=== PATIENT | male | born 1975 | race Hispanic/Latino ===

== ENCOUNTER → 2023-12-16 | Emergency (ER) | payer BC ==
[~2023-12-16] MED LIST: HYDROCODONE/APAP 5/325 MG TAB ONE; KETOROLAC 30 MG/ML INJ ONE; MORPHINE 2 MG/ML SYR ONE; MORPHINE 4 MG/ML SYR ONE; dexAMETHasone 10 MG/ML VIAL ONE
--- NOTE | 2023-12-16 04:42 | ER ---
Nurse's Notes [facility] Name: Milton Duarte Age: 48 yrs Sex: Male : 1975 Arrival Date: 12/16/2023 Time: 04:00 Bed 6 Private MD: Diagnosis: Pain in left elbow Presentation: 12/16 04:14 Chief complaint: Patient states: left elbow pain X1 day. pain 9/10. denies injury. lg3 Coronavirus screen: Client denies travel out of the [place] in the last 14 days. At this time, the client does not indicate any symptoms associated with coronavirus-19. Ebola Screen: No symptoms or risks identified at this time. Initial Sepsis Screen: Does the patient meet any 2 criteria? No. Patient's initial sepsis screen is negative. Does the patient have a suspected source of infection? No. Patient's initial sepsis screen is negative. Risk Assessment: Do you want to hurt yourself or someone else? Patient reports no desire to harm self or others. Onset of symptoms was December 15, 2023. 04:14 Method Of Arrival: Ambulatory lg3 04:14 Acuity: DINO 4 lg3 Triage Assessment: 04:17 General: Appears in no apparent distress. comfortable, Behavior is calm, cooperative. lg3 Pain: Complains of pain in left elbow Pain does not radiate. Pain currently is 9 out of 10 on a pain scale. Noted to be resistant to movement. EENT: No deficits noted. No signs and/or symptoms were reported regarding the EENT system. Neuro: No deficits noted. Alonso Agitation-Sedation Scale (RASS): 0 - Alert and Calm Level of Consciousness is awake, alert, obeys commands, Oriented to person, place, time, situation. Cardiovascular: No deficits noted. Denies chest pain, shortness of breath, Capillary refill < 3 seconds Clubbing of nail beds is absent JVD is absent Patient's skin is warm and dry. Respiratory: No deficits noted. Airway is patent Respiratory effort is even, unlabored, Respiratory pattern is regular, symmetrical, Breath sounds are clear bilaterally. GI: No deficits noted. No signs and/or symptoms were reported involving the gastrointestinal system. Abdomen is round non-distended, obese. : No deficits noted. No signs and/or symptoms were reported regarding the genitourinary system. Derm: No deficits noted. No signs and/or symptoms reported regarding the dermatologic system. Skin is intact, is healthy with good turgor, Skin is dry, Skin is normal, Skin temperature is warm. Musculoskeletal: Circulation, motion, and sensation intact. Range of motion: intact in all extremities, Reports pain in left elbow. Historical: - Allergies: 04:17 No Known Allergies; lg3 - Home Meds: 04:17 Lisinopril Oral [Active]; diclofenac potassium oral [Active]; Indomethacin Oral lg3 [Active]; - PMHx: 04:17 Gout; HTN; lg3 - PSHx: 04:17 right knee; left ankle; Appendectomy; lg3 - Immunization history:: Adult Immunizations up to date, Client reports receiving the 2nd dose of the Covid vaccine, Flu vaccine is up to date. - Social history:: Smoking status: Patient denies any tobacco usage or history of. Patient uses alcohol, weekly. Screenin:23 [facility] ED Fall Risk Assessment (Adult) History of falling in the last 3 months, tm6 including since admission No falls in past 3 months (0 pts) Confusion or Disorientation No (0 pts) Intoxicated or Sedated No (0 pts) Impaired Gait No (0 pts) Mobility Assist Device Used No (0 pt) Altered Elimination No (0 pt) Score/Fall Risk Level 0 - 2 = Low Risk Oriented to surroundings. Abuse screen: Denies threats or abuse. Denies injuries from another. Nutritional screening: No deficits noted. Tuberculosis screening: No symptoms or risk factors identified. Assessment: 04:23 General: Appears in no apparent distress. Behavior is calm, cooperative. Pain: tm6 Complains of pain in left elbow Pain currently is 9 out of 10 on a pain scale. Quality of pain is described as aching, Pain began 1 day ago. Neuro: Level of Consciousness is awake, alert, obeys commands, Oriented to person, place, time, situation. Cardiovascular: Capillary refill < 3 seconds Patient's skin is warm and dry. Respiratory: Airway is patent Respiratory effort is even, unlabored, Respiratory pattern is regular, symmetrical. GI: Abdomen is round obese. : No signs and/or symptoms were reported regarding the genitourinary system. EENT: No signs and/or symptoms were reported regarding the EENT system. Derm: No signs and/or symptoms reported regarding the dermatologic system. Musculoskeletal: Reports pain in left elbow since yesterday. 04:40 Reassessment: Patient appears in no apparent distress at this time. No changes from tm6 previously documented assessment. Patient and/or family updated on plan of care and expected duration. Pain level reassessed. Vital Signs: 04:14 BP 175 / 84; Pulse 78; Resp 18 S; Temp 98.3(O); Pulse Ox 100% on R/A; Weight 176.9 kg lg3 (R); Height 5 ft. 9 in. (R); Pain 9/10; 04:38 BP 137 / 75; Pulse 77; Pulse Ox 99% on R/A; tm6 04:54 BP 151 / 89; Pulse 75; Resp 19; Temp 98.3(TE); Pulse Ox 99% on R/A; Pain 9/10; tm6 04:14 Body Mass Index 57.59 (176.90 kg, 175.26 cm) lg3 04:14 Pain Scale: Adult lg3 04:54 Pain Scale: Adult tm6 [place] Coma Score: 05:00 Eye Response: spontaneous(4). Motor Response: obeys commands(6). Verbal Response: rv oriented(5). Total: 15. ED Course: 04:05 Patient arrived in ED. gm2 04:08 Jose rCuz Aceves PA is PHCP. cp 04:08 Jose Cruz Brunson MD is Attending Physician. cp 04:14 Efrem Taylor, BONY is Primary Nurse. tm6 04:17 Triage completed. lg3 04:17 Arm band placed on right wrist. lg3 04:23 Patient has correct armband on for positive identification. Bed in low position. Call tm6 light in reach. Side rails up X 1. Provided Education on: plan of care. Client placed on continuous cardiac and pulse oximetry monitoring. NIBP monitoring applied. Door closed. Noise minimized. 04:31 XRAY Elbow LEFT 3 view In Process Unspecified. EDMS 04:38 Shoulder immobilizer applied on left shoulder. tm6 04:55 No provider procedures requiring assistance completed. Patient did not have IV access tm6 during this emergency room visit. Administered Medications: 04:22 Drug: Ketorolac IM 30 mg IM once Route: IM; Site: left deltoid; tm6 05:35 Follow up: Response: No adverse reaction; Marked relief of symptoms rv 04:22 Drug: HYDROcodone-acetaminophen PO 5 mg-325 mg 1 tabs PO once Route: PO; tm6 05:34 Follow up: Response: No adverse reaction; Marked relief of symptoms rv 04:23 Drug: Dexamethasone IM 10 mg IM once Route: IM; Site: right deltoid; tm6 05:35 Follow up: Response: No adverse reaction; Marked relief of symptoms rv 05:18 Drug: morphine IM 6 mg IM once Route: IM; Site: right deltoid; as9 05:34 Follow up: Response: Medication administered at discharge. rv Medication: 04:23 VIS not applicable for this client. tm6 Outcome: 04:42 Discharge ordered by MD. cp 04:56 Discharged to home ambulatory, tm6 04:56 Condition: stable 04:56 Discharge instructions given to patient, Instructed on discharge instructions, follow up and referral plans. medication usage, Demonstrated understanding of instructions, follow-up care, medications, Prescriptions given X 3, 05:35 Patient left the ED. rv Signatures: Dispatcher [employer] EDMS Jose Cruz Aceves PA PA cp Vicente, Ronaldo, RN RN rv Samreen Torres RN RN lg3 Susanne Swan gm2 Efrem Taylor RN RN tm6 Jefry Price RN RN as9 Corrections: (The following items were deleted from the chart) 04:26 04:23 No provider procedures requiring assistance completed. tm6 tm6
--- NOTE | 2023-12-16 04:42 | EDPHYS ---
Physician Documentation [facility] Name: Milton Duarte Age: 48 yrs Sex: Male : 1975 Arrival Date: 12/16/2023 Time: 04:00 Bed 6 Private MD: ED Physician Jose Cruz Brunson HPI: 12/16 04:10 This 48 yrs old Male presents to ER via Unassigned with complaints of Left cp Elbow Pain. 04:10 The patient or guardian complains of decreased range of motion, pain, that is acute, cp tenderness. The complaints affect the left elbow. Context: resulted from unknown cause. Onset: The symptoms/episode began/occurred yesterday. Treatment prior to arrival includes: no previous treatment. 04:10 Associated signs and symptoms: Pertinent negatives: fever, numbness, warmth, injury. cp 04:10 Severity of symptoms: in the emergency department the symptoms are unchanged, despite cp home interventions. Historical: - Allergies: 04:17 No Known Allergies; lg3 - Home Meds: 04:17 Lisinopril Oral [Active]; diclofenac potassium oral [Active]; Indomethacin Oral lg3 [Active]; - PMHx: 04:17 Gout; HTN; lg3 - PSHx: 04:17 right knee; left ankle; Appendectomy; lg3 - Immunization history:: Adult Immunizations up to date, Client reports receiving the 2nd dose of the Covid vaccine, Flu vaccine is up to date. - Social history:: Smoking status: Patient denies any tobacco usage or history of. Patient uses alcohol, weekly. ROS: 04:15 MS/extremity: Positive for decreased range of motion, pain, of the left elbow, Negative cp for injury or acute deformity, 04:15 Eyes: Negative for injury, pain, redness, and discharge, cp 04:15 Constitutional: Negative for body aches, chills, fever, poor PO intake, 04:15 ENT: Negative for drainage from ear(s), ear pain, sore throat, difficulty swallowing, difficulty handling secretions, 04:15 Neck: Negative for pain with movement, pain at rest, stiffness, tenderness, bony tenderness, 04:15 Cardiovascular: Negative for chest pain, edema, palpitations, 04:15 Respiratory: Negative for cough, shortness of breath, wheezing, 04:15 Abdomen/GI: Negative for abdominal pain, nausea, vomiting, and diarrhea, 04:15 Back: Negative for pain at rest, pain with movement, 04:15 Skin: Negative for cellulitis, rash, 04:15 Neuro: Negative for altered mental status, dizziness, headache, weakness, 04:15 All other systems are negative, Exam: 04:20 Constitutional: The patient appears in no acute distress, alert, awake, cp non-diaphoretic, non-toxic, well developed, well nourished, obese, uncomfortable, 04:20 Head/Face: Normocephalic, atraumatic. cp 04:20 Eyes: Periorbital structures: appear normal, Conjunctiva: normal, no exudate, no injection, Sclera: no appreciated abnormality, Lids and lashes: appear normal, bilaterally, 04:20 ENT: External ear(s): are unremarkable, Nose: is normal, Mouth: Lips: moist, Oral mucosa: pink and intact, moist, Posterior pharynx: Airway: no evidence of obstruction, patent, 04:20 Neck: ROM/movement: is normal, is supple, without pain, no range of motions limitations, 04:20 Chest/axilla: Inspection: normal, 04:20 Cardiovascular: Rate: normal, Rhythm: regular, Pulses: Pulses are 2+ in left radial artery. 04:20 Respiratory: the patient does not display signs of respiratory distress, Respirations: normal, no use of accessory muscles, no retractions, labored breathing, is not present, Breath sounds: are clear throughout, no decreased breath sounds, no stridor, no wheezing, 04:20 Abdomen/GI: Exam negative for discomfort, distension, guarding, 04:20 Back: pain, is absent, ROM is normal, 04:20 Musculoskeletal/extremity: Extremities: grossly normal except: noted in the left elbow: decreased ROM, pain, swelling, tenderness, ROM: limited passive range of motion, limited passive range of motion due to pain, in the left elbow, the left hand and left arm Sensation intact. 04:20 Neuro: Orientation: to person, place \T\ time. Mentation: is normal, Vital Signs: 04:14 BP 175 / 84; Pulse 78; Resp 18 S; Temp 98.3(O); Pulse Ox 100% on R/A; Weight 176.9 kg lg3 (R); Height 5 ft. 9 in. (R); Pain 9/10; 04:38 BP 137 / 75; Pulse 77; Pulse Ox 99% on R/A; tm6 04:54 BP 151 / 89; Pulse 75; Resp 19; Temp 98.3(TE); Pulse Ox 99% on R/A; Pain 9/10; tm6 04:14 Body Mass Index 57.59 (176.90 kg, 175.26 cm) lg3 04:14 Pain Scale: Adult lg3 04:54 Pain Scale: Adult tm6 Derek Coma Score: 05:00 Eye Response: spontaneous(4). Motor Response: obeys commands(6). Verbal Response: rv oriented(5). Total: 15. MDM: 04:10 Patient medically screened. cp 04:40 Independent interpretation of the following test(s) in the Emergency Department X-Ray: cp My interpretation is images of left elbow negative for fracture. Counseling: I had a detailed discussion with the patient and/or guardian regarding the historical points, exam findings, and any diagnostic results supporting the discharge/admit diagnosis, radiology results, to return to the emergency department if symptoms worsen or persist or if there are any questions or concerns that arise at home. 04:42 Data reviewed: vital signs, nurses notes, radiologic studies, plain films. cp 04:42 Differential diagnosis: tendonitis, gout, septic joint. I considered the following cp discharge prescriptions or medication management in the emergency department Medications were administered in the Emergency Department. See DEC. 12/16 04:14 Order name: XRAY Elbow LEFT 3 view cp 12/16 04:14 Order name: Sling; Complete Time: 04:38 cp Administered Medications: 04:22 Drug: Ketorolac IM 30 mg IM once Route: IM; Site: left deltoid; tm6 05:35 Follow up: Response: No adverse reaction; Marked relief of symptoms rv 04:22 Drug: HYDROcodone-acetaminophen PO 5 mg-325 mg 1 tabs PO once Route: PO; tm6 05:34 Follow up: Response: No adverse reaction; Marked relief of symptoms rv 04:23 Drug: Dexamethasone IM 10 mg IM once Route: IM; Site: right deltoid; tm6 05:35 Follow up: Response: No adverse reaction; Marked relief of symptoms rv 05:18 Drug: morphine IM 6 mg IM once Route: IM; Site: right deltoid; as9 05:34 Follow up: Response: Medication administered at discharge. rv Disposition Summary: 12/16/23 04:42 Discharge Ordered Notes: Location: Home cp Problem: new cp Symptoms: have improved cp Condition: Stable cp Diagnosis - Pain in left elbow cp Followup: cp - With: Private Physician - When: 2 - 3 days - Reason: Recheck today's complaints Discharge Instructions: - Discharge Summary Sheet cp - Joint Pain cp Forms: - Medication Reconciliation Form cp - Thank You Letter cp - Antibiotic Education cp - Prescription Opioid Use cp - Patient Portal Instructions cp - Leadership Thank You Letter cp - Work release form rv Prescriptions: - Diclofenac Sodium 75 mg Oral Tablet Sustained Release - take 1 tablet ORAL route 2 times per day; 30 tablet; Refills: 0, Product cp Selection Permitted - Medrol (Blayne) 4 mg Oral Tablets, Dose Pack - take 1 tablet ORAL route as directed - follow package instructions; 1 packet; cp Refills: 0, Product Selection Permitted - methocarbamol 750 mg Oral tablet - take 1 tablet ORAL route 3 times per day; 30 tablet; Refills: 0, Product cp Selection Permitted Signatures: Dispatcher [employer] Jose Cruz Ibarra PA PA cp Able, Lacie RN RN lg3 Efrem Taylor RN RN tm6 Jefry Price RN RN as9 Alexi Arreguin RN rv
[2023-12-16 05:54] VITALS: BP 151/89; TEMP 98.3; O2SAT 99
--- NOTE | 2023-12-16 12:39 | RAD REPORT ---
EXAM DESCRIPTION: XR Left Elbow Complete, 3 or More Views CLINICAL HISTORY: The patient is 48 years old and is Male; PAIN TECHNIQUE: Frontal, lateral and oblique views of the left elbow. COMPARISON: No relevant prior studies available. FINDINGS: Bones/joints: Unremarkable. No acute fracture. No dislocation. Soft tissues: Unremarkable. IMPRESSION: No acute fracture or dislocation. Electronically signed by: Monty Mariee MD 12/16/2023 04:51 AM CARPET INSPECTOR Due to temporary technical issues with the PACS/Fluency reporting system, reports are being signed by the in house radiologist without review as a courtesy to ensure prompt reporting. The interpreting r adiologist is fully responsible for the content of the report.
== END ==
LOC: ER 04:00
DX: M25.522 Pain in left elbow (principal)
CPT/HCPCS: 73080; 96372; 99284; J1100; J2270

== ENCOUNTER 2024-02-28 11:25 | Emergency (ER) | payer BC ==
--- NOTE | 2024-02-28 11:51 | ER ---
Nurse's Notes [facility] Name: Milton Duarte Age: 49 yrs Sex: Male : 1975 Arrival Date: 02/28/2024 Time: 11:25 Bed 12 Private MD: Diagnosis: bilateral knee pain Presentation: 02/27 11:39 Chief complaint: Patient states: bilateral knee pain, denies injury. Coronavirus as6 screen: At this time, the client does not indicate any symptoms associated with coronavirus-19. Ebola Screen: No symptoms or risks identified at this time. Initial Sepsis Screen: Does the patient meet any 2 criteria? No. Patient's initial sepsis screen is negative. Does the patient have a suspected source of infection? No. Patient's initial sepsis screen is negative. Risk Assessment: Do you want to hurt yourself or someone else? Patient reports no desire to harm self or others. Onset of symptoms was February 27, 2024. 11:39 Method Of Arrival: Ambulatory as6 11:39 Acuity: DION 4 as6 Triage Assessment: 11:41 General: Appears uncomfortable, obese, Behavior is calm, cooperative. Pain: Complains as6 of pain in right knee and left knee. Historical: - Allergies: 11:41 No Known Allergies; as6 - PMHx: 11:41 Gout; HTN; as6 - PSHx: 11:41 Appendectomy; Left ankle; right knee; as6 - Immunization history:: Adult Immunizations up to date. - Infectious Disease History:: Denies. - Social history:: Smoking status: Patient denies any tobacco usage or history of. Screenin:05 [facility] ED Fall Risk Assessment (Adult) History of falling in the last 3 months, me1 including since admission No falls in past 3 months (0 pts) Confusion or Disorientation No (0 pts) Intoxicated or Sedated No (0 pts) Impaired Gait No (0 pts) Mobility Assist Device Used No (0 pt) Altered Elimination No (0 pt) Score/Fall Risk Level 0 - 2 = Low Risk Maintained a safe environment, Provided non-skid footwear, Hourly rounding (assess needs \\T\\ fall precautionary measures) done. Abuse screen: Denies threats or abuse. Nutritional screening: No deficits noted. Tuberculosis screening: No symptoms or risk factors identified. Assessment: 12:05 General: Appears uncomfortable, obese, well groomed, well developed, well nourished, me1 Behavior is calm, cooperative, appropriate for age, Reports bilateral knee pain that got worse yesterday. Pain is 9/10 today, "grinding" in nature. Pain: Complains of pain in right knee and left knee Pain does not radiate. Pain currently is 9 out of 10 on a pain scale. Quality of pain is described as gnawing, Pain began gradually, 1 day ago. Is continuous. Neuro: Level of Consciousness is awake, alert, obeys commands, Oriented to person, place, time, situation, Appropriate for age. Cardiovascular: Capillary refill < 3 seconds Patient's skin is warm and dry. Respiratory: Airway is patent Respiratory effort is even, unlabored, Respiratory pattern is regular, symmetrical. GI: No signs and/or symptoms were reported involving the gastrointestinal system. : No signs and/or symptoms were reported regarding the genitourinary system. EENT: No signs and/or symptoms were reported regarding the EENT system. Derm: Skin is intact, is healthy with good turgor, Skin is pink, warm \\T\\ dry. Musculoskeletal: Reports pain in right knee and left knee. Injury Description: Denies. Vital Signs: 11:39 Pulse 76; Resp 20 S; Temp 97.9(TE); Pulse Ox 96% on R/A; Weight 181.44 kg (R); Height 5 as6 ft. 9 in. (R); Pain 9/10; 11:41 BP 118 / 95; as6 12:14 BP 147 / 72; Pulse 74; Resp 18; Pulse Ox 96% on R/A; me1 12:15 Pain 4/10; me1 12:15 Pain 4/10; me1 12:15 Pain 4/10; me1 11:39 Body Mass Index 59.07 (181.44 kg, 175.26 cm) as6 11:39 Pain Scale: Adult as6 12:15 Pain Scale: Adult me1 12:15 Pain Scale: Adult me1 12:15 Pain Scale: Adult me1 ED Course: 11:27 Patient arrived in ED. im 11:36 Myah Lorenz PA-C is PHCP. sb4 11:36 Damián Patel MD is Attending Physician. sb4 11:41 Triage completed. as6 11:41 Arm band placed on. as6 11:59 Nora Powers, RN is Primary Nurse. me1 12:05 Nora Powers, RN is Primary Nurse. me1 12:05 Patient has correct armband on for positive identification. Bed in low position. Call me1 light in reach. Side rails up X 1. Provided Education on: POC. Verbalized understanding. . 12:05 No provider procedures requiring assistance completed. me1 12:16 Patient did not have IV access during this emergency room visit. me1 Administered Medications: 12:02 Drug: Acetaminophen PO 650 mg PO once Route: PO; as6 12:15 Follow up: Pain 4/10 Adult; Response: No adverse reaction; Pain is decreased me1 12:03 Drug: Ketorolac IM 30 mg IM once Route: IM; Site: right deltoid; as6 12:15 Follow up: Pain 4/10 Adult; Response: No adverse reaction; Pain is decreased me1 12:03 Drug: Hydrocodone-Acetaminophen PO (7.5 mg-325 mg) 1 tabs PO once Route: PO; as6 12:15 Follow up: Pain 4/10 Adult; Response: No adverse reaction; Pain is decreased me1 Medication: 12:05 VIS not applicable for this client. me1 Outcome: 11:50 Discharge ordered by . sb4 12:16 Discharged to home ambulatory, me1 12:16 Condition: stable 12:16 Discharge instructions given to patient, Instructed on discharge instructions, follow up and referral plans. medication usage, Demonstrated understanding of instructions, follow-up care, medications, Prescriptions given X 2, 12:16 Patient left the ED. me1 Signatures: Hardy Disla, RN RN as6 Myah Lorenz, PA-C PA-C sb4 Ute Flor Michelle, RN RN me1
--- NOTE | 2024-02-28 11:51 | EDPHYS ---
Physician Documentation [facility] Name: Milton Duarte Age: 49 yrs Sex: Male : 1975 Arrival Date: 02/28/2024 Time: 11:25 Bed 12 Private MD: ED Physician Damián Patel HPI: 02/27 11:56 This 49 yrs old Male presents to ER via Ambulatory with complaints of Knee sb4 Pain. 11:56 bilateral knee pain/stiffness since waking this morning. reports history of "bone on sb4 bone" in both knees. sees an ortho in [place] and occasionally gets joint injections. states he did not take anything this morning for the pain, came straight here because he feels like he couldn't even put his shoes on. denies any injury. Historical: - Allergies: 11:41 No Known Allergies; as6 - PMHx: 11:41 Gout; HTN; as6 - PSHx: 11:41 Appendectomy; Left ankle; right knee; as6 - Immunization history:: Adult Immunizations up to date. - Infectious Disease History:: Denies. - Social history:: Smoking status: Patient denies any tobacco usage or history of. ROS: 11:56 Constitutional: Negative for fever, chills, and weight loss, sb4 11:56 MS/extremity: Positive for pain, of the right knee and left knee, 11:56 All other systems are negative, Exam: 11:56 Head/Face: Normocephalic, atraumatic. Eyes: Extra-ocular motions intact. Periorbital sb4 areas with no swelling, redness, or edema. ENT: Mucous membranes moist. Skin: Warm, dry with normal turgor. Normal color with no rashes, no lesions, and no evidence of cellulitis. MS/ Extremity: Pulses equal, no cyanosis. Neurovascular intact. Full, normal range of motion. Neuro: Awake and alert, GCS 15, oriented to person, place, time, and situation. Motor strength 5/5 in all extremities. Sensory grossly intact. 11:56 Constitutional: The patient appears in no acute distress, alert, awake, obese, Vital Signs: 11:39 Pulse 76; Resp 20 S; Temp 97.9(TE); Pulse Ox 96% on R/A; Weight 181.44 kg (R); Height 5 as6 ft. 9 in. (R); Pain 9/10; 11:41 BP 118 / 95; as6 12:14 BP 147 / 72; Pulse 74; Resp 18; Pulse Ox 96% on R/A; me1 12:15 Pain 4/10; me1 12:15 Pain 4/10; me1 12:15 Pain 4/10; me1 11:39 Body Mass Index 59.07 (181.44 kg, 175.26 cm) as6 11:39 Pain Scale: Adult as6 12:15 Pain Scale: Adult me1 12:15 Pain Scale: Adult me1 12:15 Pain Scale: Adult me1 MDM: 11:42 Patient medically screened. sb4 11:56 Data reviewed: vital signs, nurses notes, and as a result, I will discharge patient. sb4 Counseling: I had a detailed discussion with the patient and/or guardian regarding the historical points, exam findings, and any diagnostic results supporting the discharge/admit diagnosis, to return to the emergency department if symptoms worsen or persist or if there are any questions or concerns that arise at home. Administered Medications: 12:02 Drug: Acetaminophen PO 650 mg PO once Route: PO; as6 12:15 Follow up: Pain 4/10 Adult; Response: No adverse reaction; Pain is decreased me1 12:03 Drug: Ketorolac IM 30 mg IM once Route: IM; Site: right deltoid; as6 12:15 Follow up: Pain 4/10 Adult; Response: No adverse reaction; Pain is decreased me1 12:03 Drug: Hydrocodone-Acetaminophen PO (7.5 mg-325 mg) 1 tabs PO once Route: PO; as6 12:15 Follow up: Pain 4/10 Adult; Response: No adverse reaction; Pain is decreased me1 Disposition Summary: 02/28/24 11:50 Discharge Ordered Notes: Location: Home sb4 Problem: new sb4 Symptoms: have improved sb4 Condition: Stable sb4 Diagnosis - bilateral knee pain sb4 Followup: sb4 - With: Private Physician - When: As needed - Reason: Recheck today's complaints, Re-evaluation by your physician Discharge Instructions: - Discharge Summary Sheet sb4 - Osteoarthritis sb4 - Chronic Knee Pain, Adult, [id number] sb4 Forms: - Patient Portal Instructions sb4 - Leadership Thank You Letter sb4 Prescriptions: - meloxicam 15 mg Oral tablet - take 1 tablet ORAL route daily; 30 tablet; Refills: 0, Product Selection sb4 Permitted - Cyclobenzaprine 10 mg Oral Tablet - take 1 tablet ORAL route every 8 hours As needed; 30 tablet; Refills: 0, sb4 Product Selection Permitted Signatures: Hardy Disla RN RN as6 Myah Lorenz PA-C PA-C sb4 Nora Powers RN me1
[2024-02-28] MEDS ORDERED: KETOROLAC 30 MG/ML INJ ONE (11:58)
[2024-02-28] MEDS ORDERED: HYDROCODONE/APAP 7.5/325 MG TAB ONE (11:58)
[2024-02-28] MEDS ORDERED: ACETAMINOPHEN 325 MG TABLET ONE (11:58)
[2024-02-28 12:36] VITALS: BP 118/95; TEMP 97.9; O2SAT 96
== END 2024-02-28 12:16 | disposition home or self-care (01) ==
LOC: ER 11:25
DX: M25.562 Pain in left knee (principal); M25.561 Pain in right knee; M10.9 Gout, unspecified; I10 Essential (primary) hypertension
CPT/HCPCS: 96372; 99284